=== PATIENT | male | born 1965 | race Caucasian/White ===

== ENCOUNTER 2018-05-27 05:33 | Day surgery (SDC) | payer MEDICAID ==
[~2018-05-27] VITALS: Ht 180.3 cm; Wt 87.1 kg
[2018-05-27] MEDS ORDERED: POLYMYXIN 500,000/BACIT.10,000 UNITS in NS IRR 1 L IR ONE (07:46)
[2018-05-27] MEDS ORDERED: LR 1,000 ML IV SCH (08:26)
[2018-05-27] MEDS ORDERED: METOCLOPRAMIDE HCL 10 MG/2 ML VIAL IVP PRN (08:30)
[2018-05-27] MEDS ORDERED: MORPHINE 4 MG/ML INJ. SYRINGE IVP PRN ×3 (08:30)
[2018-05-27] MEDS ORDERED: MIDAZOLAM HCL 5 MG/ML VIAL (VERSED) IV ONE (09:30)
[2018-05-27] MEDS ORDERED: LIDOCAINE/EPI 1% 1:100000 20 ML VIAL INJ ONE (09:30)
[2018-05-27] MEDS ORDERED: PROPOFOL 200MG/ 20ML VIAL (DIPRIVAN) IV ONE (09:30)
[2018-05-27] MEDS ORDERED: LR 1,000 ML IV.SOLN IV ONE (09:30)
[2018-05-27] MEDS ORDERED: ePHEDrine sulfate 50 MG/ML VIAL ONE (09:30)
[2018-05-27] MEDS ORDERED: NS IRRIG SOLN 1000 ML IR ONE (09:30)
[2018-05-27] MEDS ORDERED: fentaNYL CITRATE 250 MCG/5 ML AMP ONE (09:30)
[2018-05-27] MEDS ORDERED: MUPIROCIN 2% TOPICAL OINTMENT 22 GM ONE (09:30)
[2018-05-27] MEDS ORDERED: WATER FOR IRRIGATION,STERILE 1,000 ML IRRIG.SOLN IR ONE (09:30)
[2018-05-27] MEDS ORDERED: DEXAMETHASONE SOD PHOSPHATE 4 MG/ML VIAL ONE (09:30)
[2018-05-27] MEDS ORDERED: ONDANSETRON HCL 4 MG/2 ML VIAL ONE (09:30)
[2018-05-27] MEDS ORDERED: NS 500 ML IV.SOLN IV ONE (09:30)
[2018-05-27] MEDS ORDERED: OXYMETAZOLINE HCL 0.05% NASAL SPRAY NS ONE (09:30)
[2018-05-27] MEDS ORDERED: SEVOFLURANE 15 MIN GAS INH ONE (09:30)
[2018-05-27] MEDS ORDERED: ROCURONIUM BROMIDE 10 MG/ML (ZEMURON) ONE (09:30)
[2018-05-27] MEDS ORDERED: MORPHINE 4 MG/ML INJ. SYRINGE ONE (09:39)
[2018-05-27 10:38] VITALS: BP_SYST 136
== END 2018-05-27 11:20 | disposition home or self-care (01) ==
LOC: SDS 05:33 → SMU 05:34 → SDS 11:20
PROVIDERS: ATTEND Otolaryngology
DX: J34.2 Deviated nasal septum (principal); J34.89 Other specified disorders of nose and nasal sinuses; J32.4 Chronic pansinusitis; I10 Essential (primary) hypertension; J45.901 Unspecified asthma with (acute) exacerbation; E66.3 Overweight; G62.9 Polyneuropathy, unspecified; E78.00 Pure hypercholesterolemia, unspecified; K21.9 Gastro-esophageal reflux disease without esophagitis; I48.91 Unspecified atrial fibrillation; Z68.26 Body mass index [BMI] 26.0-26.9, adult; Z87.891 Personal history of nicotine dependence; Z91.09 Other allergy status, other than to drugs and biological substances; Z83.3 Family history of diabetes mellitus; Z79.899 Other long term (current) drug therapy; Z90.12 Acquired absence of left breast and nipple; Z98.890 Other specified postprocedural states
CPT/HCPCS: 30140; 30520; 31020; 88305; 88311; J1100; J2250; J2270; J2405; J2704; J3010; J7040; J7120